=== PATIENT | male | born 1990 | race Caucasian/White ===

== ENCOUNTER 2025-06-20 19:44 | Emergency (ER) | payer SELFPAY ==
[~2025-06-20] VITALS: Ht 167.6 cm; Wt 59.5 kg
[2025-06-20 20:17] VITALS: O2SAT 99
[2025-06-20] MEDS ORDERED: SULF1TAB48 MT (22:08)
[2025-06-20] MEDS ORDERED: IBUP-1455 MT (22:08)
[2025-06-20] MEDS ORDERED: MUPI1OIN4 TP (22:08)
[2025-06-20] MEDS: IBUPROFEN 600MG TABLET PO ONE (22:46)
[2025-06-20] MEDS: SULFAMETHOXAZOLE/TRIMETHOPRIM 800/160MG TABLET PO ONE (22:46)
[2025-06-20 22:47] VITALS: BP 107/72; PULSE 59; RESP 18; TEMP 36.8; O2SAT 99
== END 2025-06-20 22:50 | disposition home or self-care (01) ==
LOC: ER 19:44
DX: L03.039 Cellulitis of unspecified toe (principal); Z79.899 Other long term (current) drug therapy
CPT/HCPCS: 99283